=== PATIENT | male | born 2000 | race African-American/Black ===

== ENCOUNTER 2024-06-24 18:18 | Inpatient (IN) | payer MEDICAID ==
[2024-06-24] MEDS ORDERED: LORazepam 2 MG TABLET PO PRN (20:00)
[2024-06-24] MEDS ORDERED: ZOLPIDEM TARTRATE 10 MG TABLET PO PRN (20:00)
[2024-06-24] MEDS ORDERED: HALOPERIDOL 5 MG TABLET PO PRN (20:00)
[2024-06-24] MEDS ORDERED: INFLUENZA VIRUS VACCINE TVS (6MO+) 2024-25/PF 45 MCG/0.5 ML SYRINGE IM. ONE (20:30)
[2024-06-24] MEDS ORDERED: PROMETHAZINE HCL 25 MG TABLET PO PRN (20:45)
[2024-06-24] MEDS ORDERED: TUBERCULIN, PURIFIED PROTEIN DERIVATIVE 5 TU/0.1 ML SYRINGE ID ONE (20:45)
[2024-06-24] MEDS ORDERED: GuaiFENesin/D-METHORPHAN [SUGAR-FREE] 200-20MG/10 ML SYRUP UDCUP PO PRN (20:45)
[2024-06-24] MEDS ORDERED: ACETAMINOPHEN 325 MG TABLET PO PRN (20:45)
[2024-06-24] MEDS ORDERED: MAG HYDROX/ALUMINUM HYD/SIMETH ES 30 ML SUSPENSION UDCUP PO PRN (20:45)
[2024-06-24] MEDS ORDERED: OLANZapine 5 MG RAPDIS TABLET PO PRN (20:45)
[2024-06-24] MEDS ORDERED: MAGNESIUM HYDROXIDE SUSPENSION 30 ML UDCUP PO PRN (20:45)
[2024-06-24] MEDS ORDERED: MELATONIN 5 MG TABLET PO PRN (20:45)
[2024-06-24] MEDS ORDERED: LOPERAMIDE HCL 2 MG CAPSULE PO PRN (20:45)
[2024-06-24] MEDS ORDERED: HydrOXYzine PAMOATE 50 MG CAPSULE PO PRN (20:45)
[2024-06-24] MEDS: OLANZapine 5 MG RAPDIS TABLET PO SCH (21:00)
[2024-06-24] MEDS: DIVALPROEX SODIUM 500 MG ER TABLET PO SCH (21:00)
[2024-06-25 00:50] VITALS: BP 145/93; PULSE 90; RESP 18; TEMP 97.6; O2SAT 100
[2024-06-25 07:52] LABS: BASOPHILS % (AUTO) 0.6 % (0.0-2.0); EOSINOPHILS % (AUTO) 1.5 % (1.0-6.0); HEMATOCRIT 41.1 % (41-53); HEMOGLOBIN 13.9 g/dL (13.5-17.5); LYMPHOCYTES # (AUTO) 1.8 K/uL (1.0-4.8); LYMPHOCYTES % (AUTO) 43.1 % (22.0-44.0); MEAN CORPUSCULAR HEMOGLOBIN 31.8 pg (26.0-34.0); MEAN CORPUSCULAR HGB CONC 33.7 G/dL (31.0-37.0); MEAN CORPUSCULAR VOLUME 94 fL (80-100); MONOCYTES # (AUTO) 0.5 K/uL (0.1-1.0); MONOCYTES % (AUTO) 11.5 % (2.0-9.0); NEUTROPHILS # (AUTO) 1.8 K/uL (1.8-7.7); NEUTROPHILS % (AUTO) 43.3 % (40.0-70.0); PLATELET COUNT (AUTO) 191 K/uL (150-450); RED BLOOD CELL COUNT(AUTO) 4.36 MIL/uL (4.50-5.90); RED CELL DISTRIBUTION WIDTH 13.1 % (11.5-14.5); WHITE BLOOD COUNT (AUTO) 4.2 K/uL (4.5-11.0)
[2024-06-25 08:13] LABS: ALANINE AMINOTRANSFERASE 34 U/L (12-78); ALBUMIN 3.2 g/dL (3.4-5.0); ALKALINE PHOSPHATASE 51 U/L (46-116); ANION GAP 7 mmol/L (8-16); ASPARTATE AMINOTRANSFERASE 55 U/L (15-37); BILIRUBIN,TOTAL 0.6 mg/dL (0.1-1.0); CALCIUM, TOTAL 8.3 mg/dL (8.8-10.5); CARBON DIOXIDE 29 mmol/L (22-29); CHLORIDE 102 mmol/L (98-107); CHOL/HDL RATIO 3.6 (4.2-7.3); CHOLESTEROL 167 mg/dL (131-200); CREATININE 1.05 mg/dL (0.60-1.30); FREE T4 (FREE THYROXINE) 1.11 ng/dL (0.76-1.46); GLOMERULAR FILTR. RATE CALC > 60 mL/min (>60); GLUCOSE,RANDOM 69 mg/dL (70-110); HDL CHOLESTEROL 46 mg/dL (40-60); LDL CHOL (CALC.) 114 mg/dL (0-130); POTASSIUM 3.6 mmol/L (3.5-5.1); SODIUM SERUM 138 mmol/L (136-145); THYROID STIMULATING HORMONE 0.74 uIU/mL (0.36-3.74); TOTAL PROTEIN, SERUM 7.1 g/dL (6.4-8.2); TRIGLYCERIDES 37 mg/dL (15-150); UREA NITROGEN, BLOOD 12 mg/dL (7-18)
[2024-06-25 08:19] VITALS: BP 137/89; PULSE 102; RESP 17; TEMP 97.8; O2SAT 100
[2024-06-25] MEDS: FOLIC ACID 1 MG TABLET PO SCH (08:26)
[2024-06-25] MEDS: MULTIVITAMINS WITH MINERALS, THERAPEUTIC TABLET PO SCH (08:26)
[2024-06-25] MEDS: THIAMINE 100 MG TABLET PO SCH (08:26)
[2024-06-25] MEDS: NALTREXONE HCL 50 MG TABLET PO SCH (08:26)
[2024-06-25] MEDS: GuanFACINE HCL 1 MG TABLET PO SCH (17:47)
[2024-06-25] MEDS: PALIPERIDONE PALMITATE 234 MG/1.5 ML SYRINGE IM ONE (18:35)
[2024-06-25 20:21] VITALS: BP 126/73; PULSE 98; RESP 18; TEMP 97.3; O2SAT 98
[2024-06-26 08:49] VITALS: BP 148/79; PULSE 67; RESP 18; TEMP 98.2; O2SAT 97
[2024-06-26] MEDS: ATOMOXETINE HCL 10 MG CAPSULE PO SCH (09:22)
[2024-06-26 16:01] VITALS: BP 139/82; PULSE 72; RESP 18; TEMP 98
[2024-06-26 20:23] VITALS: BP 134/87; PULSE 85; RESP 20; TEMP 98.2; O2SAT 98
[2024-06-27 08:17] VITALS: BP 143/87; PULSE 103; RESP 18; TEMP 97.8; O2SAT 98
[2024-06-27] MEDS: ATOMOXETINE HCL 18 MG CAPSULE PO SCH (08:19)
[2024-06-27] MEDS: GuanFACINE HCL 1 MG TABLET PO SCH (08:20)
[2024-06-27 08:27] LABS: APPEARANCE,URINE CLEAR (CLEAR); BILIRUBIN,URINE NEGATIVE (NEGATIVE); COLOR,URINE LIGHT YELLOW (YELLOW); GLUCOSE, URINE (UA) NEGATIVE (NEGATIVE); KETONES,URINE NEGATIVE (NEGATIVE); LEUKOCYTE ESTERASE ,URINE NEGATIVE (NEGATIVE); NITRATE,URINE NEGATIVE (NEGATIVE); OCCULT BLOOD,URINE NEGATIVE (NEGATIVE); PH,URINE 7.5 (5.0-8.0); PH,URINE DRUG SCREEN 7.5 (5.0-8.0); PROTEIN,URINE NEGATIVE (NEGATIVE); SPECIFIC GRAVITIY, URINE 1.011 (1.003-1.030); UROBILINOGEN,URINE <=1.0 mg/dL (<=1.0)
[2024-06-27 08:36] LABS: ALCOHOL, URINE DRUG SCREEN NEGATIVE (NEGATIVE); AMPHET/METH SCREEN,URINE NEGATIVE (NEGATIVE); BARBITURATE SCREEN, URINE NEGATIVE (NEGATIVE); BENZODIAZEPINES SCREEN,URINE NEGATIVE (NEGATIVE); CANNABINOID SCREEN,URINE POSITIVE (NEGATIVE); COCAINE SCREEN,URINE NEGATIVE (NEGATIVE); METHADONE SCREEN, URINE NEGATIVE (NEGATIVE); OPIATE SCREEN,URINE NEGATIVE (NEGATIVE); PHENCYCLIDINE SCREEN,URINE NEGATIVE (NEGATIVE)
[2024-06-27 20:25] VITALS: BP 152/95; PULSE 99; RESP 18; TEMP 96.5
[2024-06-27] MEDS: OLANZapine 10 MG RAPDIS TABLET PO SCH (20:54)
[2024-06-28 08:31] VITALS: BP 122/73; PULSE 65; RESP 16; TEMP 97.5; O2SAT 100
[2024-06-28 20:11] VITALS: BP 119/78; PULSE 82; RESP 18; TEMP 97.8
[2024-06-29 08:09] VITALS: BP 110/69; PULSE 95; RESP 17; TEMP 98.2; O2SAT 100
[2024-06-29] MEDS ORDERED: PALIPERIDONE PALMITATE 156 MG/ML SYRINGE IM ONE (09:00)
[2024-06-29 20:25] VITALS: BP 115/78; PULSE 85; RESP 18; TEMP 97.4; O2SAT 99
[2024-06-30 12:42] VITALS: BP 121/65; PULSE 84; RESP 18; TEMP 98; O2SAT 99
[2024-06-30 20:25] VITALS: BP 124/72; PULSE 76; RESP 16; TEMP 98.1; O2SAT 97
[2024-06-30] MEDS: BACITRACIN 28 GM OINTMENT TP SCH (21:08)
[2024-07-01 09:02] VITALS: BP 121/71; PULSE 80; RESP 18; TEMP 97; O2SAT 100
[2024-07-01 16:10] VITALS: BP 132/84; PULSE 77; RESP 17; TEMP 97.8
[2024-07-01 20:11] VITALS: BP 130/79; PULSE 74; RESP 18; TEMP 97.1; O2SAT 98
[2024-07-02] MEDS ORDERED: DIVA-153 PO (08:50)
[2024-07-02] MEDS ORDERED: OLAN10TA26 PO (08:50)
[2024-07-02] MEDS ORDERED: GUAN1TAB2 PO (08:50)
[2024-07-02] MEDS ORDERED: MELA5TAB40 PO (08:50)
[2024-07-02] MEDS ORDERED: NALT50TA33 PO (08:50)
[2024-07-02] MEDS ORDERED: BUPR-514 PO (08:50)
[2024-07-02] MEDS: BuPROPion HCL XL 150 MG ER TABLET PO SCH (09:13)
[2024-07-02 10:01] VITALS: BP 120/82; PULSE 81; RESP 17; TEMP 98; O2SAT 99
[2024-07-02 10:11] VITALS: BP 124/71; PULSE 86; RESP 16; TEMP 97.7; O2SAT 98
== END 2024-07-02 10:05 | disposition home or self-care (01) | DRG 750 ==
LOC: B3A 19:57
PROVIDERS: ADMIT Psychiatry & Neurology Psychiatry; ATTEND Psychiatry & Neurology Psychiatry
PROC: GZHZZZZ Group Psychotherapy (ICD-10-PCS; principal; 2024-06-25)
PROC: GZ51ZZZ Individual Psychotherapy, Behavioral (ICD-10-PCS; 2024-06-25)
DX: F25.0 Schizoaffective disorder, bipolar type (principal); F22 Delusional disorders; D72.819 Decreased white blood cell count, unspecified; F90.9 Attention-deficit hyperactivity disorder, unspecified type; R03.0 Elevated blood-pressure reading, without diagnosis of hypertension; F32.9 Major depressive disorder, single episode, unspecified; F06.30 Mood disorder due to known physiological condition, unspecified; Z81.8 Family history of other mental and behavioral disorders; Z56.0 Unemployment, unspecified
CPT/HCPCS: 80053; 80061; 80307; 81003; 83036; 84439; 84443; 85025; 86592